=== PATIENT | male | born 1935 | race Caucasian/White ===

== ENCOUNTER 2021-08-09 11:58 | Observation (INO) ==
[2021-08-09] MEDS ORDERED: 0.9 % Sodium Chloride 1,000 ML IV ONE (12:11)
[2021-08-09 12:41] LABS: Basophils % 0.6 %; Eosinophils % 0.6 %; Hematocrit 30.1 % (37.5-50.1); Hemoglobin 9.2 g/dL (12.9-16.9); Immature Granulocytes % 9.2 % (0-4); Lymphocytes % 16.6 %; Mean Corpuscular HGB Conc 30.6 g/dL (31.6-35.5); Mean Corpuscular Hemoglobin 28.4 pg (28.0-33.3); Mean Corpuscular Volume 92.9 fL (83.0-100.0); Mean Platelet Volume 10.3 fL (9.4-12.4); Monocytes % 60.1 %; Neutrophils # 0.4 K/mcL (1.6-8.9); Red Blood Count 3.24 M/mcL (4.19-5.50); Red Cell Distribution Width 16.1 % (11.5-14.5); Segmented Neutrophils % 12.9 %; White Blood Count 3.3 K/mcL (4.3-11.1)
[2021-08-09 12:42] LABS: Lymphocytes # 0.6 K/mcL (0.6-4.6); Platelet Count 85 K/mcL (140-400)
[2021-08-09 12:48] LABS: INR 1.3
[2021-08-09 12:59] LABS: Magnesium 1.5 mg/dL (1.6-2.6); Phosphorous 3.4 mg/dL (2.7-4.5); Troponin I < 0.03 ng/mL (< 0.04)
[2021-08-09 13:00] LABS: Platelet Estimate Decreased (Normal); Tear Drop Cells 1+ (Not Present)
[2021-08-09 13:02] LABS: Anisocytosis 1+ (Not Present)
[2021-08-09 13:18] LABS: Albumin/Globulin Ratio 0.9 (1.1-2.2); Bilirubin,Total 0.4 mg/dL (0.3-1.0); Calcium 8.2 mg/dL (8.6-10.3); Globulin 3.3 g/dL (2.4-3.5); Potassium 4.4 mEq/L (3.5-5.1); Total Protein 6.3 g/dL (6.4-8.9)
[2021-08-09 14:22] LABS: Bilirubin,Urine Negative (Negative); Blood,Urine Large (Negative); Clarity,Urine Cloudy (Clear); Color,Urine Amber (Yellow); Glucose,Urine (UA) Normal (Normal); Ketones,Urine Trace mg/dL (Negative); Leukocyte Esterase,Urine Negative (Negative); Nitrite,Urine Negative (Negative); Protein,Urine Trace mg/dL (Neg-Trace); Urobilinogen,Urine Normal (Normal)
[2021-08-09 14:32] LABS: RBC,Urine TNTC per hpf (0-3)
[2021-08-09] MEDS ORDERED: Ondansetron 4 MG/2 ML VIAL IVP PRN (15:29)
[2021-08-09] MEDS ORDERED: Naloxone 0.4 MG/ML INJ IVP PRN (15:29)
[2021-08-09] MEDS ORDERED: Ondansetron ODT 4 MG TAB.RAPDIS SL PRN (15:29)
[2021-08-09] MEDS ORDERED: MOM Conc 10 ML UD.LIQ PO PRN (15:29)
[2021-08-09] MEDS ORDERED: Mag Hydrox/Al Hydrox/Simeth 30 ML UDC PO PRN (15:29)
[2021-08-09] MEDS ORDERED: cefTRIAXone 1,000 MG in Water for inj. (sterile) 10 ML IVP SCH (15:36)
[2021-08-09] MEDS ORDERED: Primidone 50 MG TABLET PO SCH (16:00)
[2021-08-09] MEDS: 0.9 % Sodium Chloride 1,000 ML IVC SCH (16:19)
[2021-08-09] MEDS ORDERED: Primidone 50 MG TABLET PO ONE (21:00)
[2021-08-09] MEDS: Melatonin 3 MG TABLET PO PRN (21:34)
[2021-08-09] MEDS: *HR* HYDROcodone/Acet 5/325 mg TABLET PO PRN (21:34)
[2021-08-09] MEDS: Magnesium Oxide 400 MG TABLET PO SCH (21:35)
[2021-08-09] MEDS: valACYclovir 500 MG TABLET PO SCH (21:35)
[2021-08-10] MEDS: 0.9 % Sodium Chloride 1,000 ML IVC SCH (04:21)
[2021-08-10 06:11] LABS: Hematocrit 27.2 % (37.5-50.1); Hemoglobin 8.2 g/dL (12.9-16.9); Mean Corpuscular HGB Conc 30.1 g/dL (31.6-35.5); Mean Corpuscular Hemoglobin 28.2 pg (28.0-33.3); Mean Corpuscular Volume 93.5 fL (83.0-100.0); Mean Platelet Volume 10.2 fL (9.4-12.4); Red Blood Count 2.91 M/mcL (4.19-5.50); Red Cell Distribution Width 16.3 % (11.5-14.5); White Blood Count 3.2 K/mcL (4.3-11.1)
[2021-08-10 06:12] LABS: Platelet Count 73 K/mcL (140-400)
[2021-08-10 06:41] LABS: Albumin 2.7 g/dL (3.5-5.7); Albumin/Globulin Ratio 0.9 (1.1-2.2); Bilirubin,Total 0.3 mg/dL (0.3-1.0); Calcium 7.8 mg/dL (8.6-10.3); Globulin 2.9 g/dL (2.4-3.5); Magnesium 2.1 mg/dL (1.6-2.6); Phosphorous 3.5 mg/dL (2.7-4.5); Potassium 4.5 mEq/L (3.5-5.1); Total Protein 5.6 g/dL (6.4-8.9)
[2021-08-10] MEDS: Magnesium Oxide 400 MG TABLET PO SCH ×2 (08:31→21:17)
[2021-08-10] MEDS: valACYclovir 500 MG TABLET PO SCH ×2 (08:31→21:18)
[2021-08-10 09:28] LABS: Monocytes # 1.1 K/mcL (0.0-1.3); Neutrophils # 1.1 K/mcL (1.6-8.9); Platelet Estimate Marked Decrease (Normal)
[2021-08-10] MEDS: Acetaminophen 325 MG TABLET PO PRN ×2 (12:53→18:53)
[2021-08-10] MEDS: Melatonin 3 MG TABLET PO PRN (21:17)
[2021-08-11] MEDS: valACYclovir 500 MG TABLET PO SCH ×2 (08:39→20:59)
[2021-08-11] MEDS: Acetaminophen 325 MG TABLET PO PRN (08:39)
[2021-08-11] MEDS: Magnesium Oxide 400 MG TABLET PO SCH ×2 (08:39→20:59)
[2021-08-11 10:10] LABS: Basophils % 0.7 %; Eosinophils # 0.1 K/mcL (0.0-0.6); Eosinophils % 2.2 %; Hematocrit 28.1 % (37.5-50.1); Hemoglobin 8.5 g/dL (12.9-16.9); Immature Granulocytes % 0.7 % (0-4); Lymphocytes # 0.4 K/mcL (0.6-4.6); Lymphocytes % 13.3 %; Mean Corpuscular HGB Conc 30.2 g/dL (31.6-35.5); Mean Corpuscular Hemoglobin 28.2 pg (28.0-33.3); Mean Corpuscular Volume 93.4 fL (83.0-100.0); Mean Platelet Volume 10.5 fL (9.4-12.4); Monocytes # 1.7 K/mcL (0.0-1.3); Monocytes % 61.3 %; Neutrophils # 0.6 K/mcL (1.6-8.9); Red Blood Count 3.01 M/mcL (4.19-5.50); Red Cell Distribution Width 16.3 % (11.5-14.5); Segmented Neutrophils % 21.8 %; White Blood Count 2.7 K/mcL (4.3-11.1)
[2021-08-11 10:32] LABS: Platelet Count 57 K/mcL (140-400)
[2021-08-11 10:38] LABS: Platelet Estimate Decreased (Normal)
[2021-08-11 11:31] LABS: Calcium 7.9 mg/dL (8.6-10.3); Magnesium 1.8 mg/dL (1.6-2.6); Potassium 4.3 mEq/L (3.5-5.1)
[2021-08-11] MEDS: *HR* HYDROcodone/Acet 5/325 mg TABLET PO PRN ×2 (12:49→21:02)
[2021-08-11] MEDS: Melatonin 3 MG TABLET PO PRN (21:02)
[2021-08-12 05:04] LABS: Basophils % 0.4 %; Eosinophils # 0.1 K/mcL (0.0-0.6); Eosinophils % 1.8 %; Hematocrit 26.7 % (37.5-50.1); Hemoglobin 8.2 g/dL (12.9-16.9); Immature Granulocytes % 0.4 % (0-4); Lymphocytes # 0.5 K/mcL (0.6-4.6); Lymphocytes % 16.1 %; Mean Corpuscular HGB Conc 30.7 g/dL (31.6-35.5); Mean Corpuscular Hemoglobin 28.6 pg (28.0-33.3); Mean Platelet Volume 9.2 fL (9.4-12.4); Monocytes # 1.8 K/mcL (0.0-1.3); Monocytes % 62.8 %; Neutrophils # 0.5 K/mcL (1.6-8.9); Red Blood Count 2.87 M/mcL (4.19-5.50); Red Cell Distribution Width 16.3 % (11.5-14.5); Segmented Neutrophils % 18.5 %; White Blood Count 2.9 K/mcL (4.3-11.1)
[2021-08-12 05:09] LABS: Platelet Count 56 K/mcL (140-400)
[2021-08-12 05:10] LABS: Platelet Estimate Decreased (Normal)
[2021-08-12 05:19] LABS: BUN/Creatinine Ratio 21 (6-26); Blood Urea Nitrogen 28 mg/dL (8-23); Carbon Dioxide 26 mEq/L (23-29); Chloride 108 mEq/L (98-107); Glucose 113 mg/dL (70-105); Osmolality,Calculated 292 (280-300); Sodium 138 mEq/L (136-145); eGFR For African Americans > 60 (> 60); eGFR For Non-African Americans 52 (> 60)
[2021-08-12] MEDS: valACYclovir 500 MG TABLET PO SCH (08:56)
[2021-08-12] MEDS: Magnesium Oxide 400 MG TABLET PO SCH (08:56)
[2021-08-12 11:20] VITALS: BP 136/66; PULSE 66; RESP 16; TEMP 97.3; O2SAT 94
[2021-08-12] MEDS: *HR* HYDROcodone/Acet 5/325 mg TABLET PO PRN (14:51)
== END 2021-08-12 16:31 | disposition other institution (70) ==
LOC: INPGRE 11:58 → EMEROOGRE 11:58 → INPGRE 15:30
PROVIDERS: ADMIT Family Medicine; ATTEND Family Medicine

== ENCOUNTER 2021-08-12 16:24 | Inpatient (IN) ==
[2021-08-12] MEDS ORDERED: Acetaminophen 325 MG TABLET PO PRN (16:58)
[2021-08-12] MEDS ORDERED: Melatonin 3 MG TABLET PO PRN (17:00)
[2021-08-12] MEDS ORDERED: Mag Hydrox/Al Hydrox/Simeth 30 ML UDC PO PRN (17:00)
[2021-08-12] MEDS ORDERED: MOM Conc 10 ML UD.LIQ PO PRN (17:01)
[2021-08-12] MEDS ORDERED: Naloxone 0.4 MG/ML INJ IVP PRN (17:01)
[2021-08-12] MEDS ORDERED: Ondansetron 4 MG/2 ML VIAL IVP PRN (17:01)
[2021-08-12] MEDS ORDERED: Ondansetron ODT 4 MG TAB.RAPDIS SL PRN (17:02)
[2021-08-12] MEDS: Primidone 50 MG TABLET PO SCH (20:25)
[2021-08-12] MEDS: valACYclovir 500 MG TABLET PO SCH (20:26)
[2021-08-12] MEDS: Magnesium Oxide 400 MG TABLET PO SCH (20:26)
[2021-08-13] MEDS: *HR* HYDROcodone/Acet 5/325 mg TABLET PO PRN ×3 (02:11→14:41)
[2021-08-13] MEDS: Magnesium Oxide 400 MG TABLET PO SCH ×2 (08:27→20:21)
[2021-08-13] MEDS: valACYclovir 500 MG TABLET PO SCH ×2 (08:27→20:21)
[2021-08-13] MEDS: Primidone 50 MG TABLET PO SCH (20:20)
[2021-08-14 04:43] LABS: Hematocrit 26.5 % (37.5-50.1); Hemoglobin 8.1 g/dL (12.9-16.9); Mean Corpuscular HGB Conc 30.6 g/dL (31.6-35.5); Mean Corpuscular Hemoglobin 28.3 pg (28.0-33.3); Mean Corpuscular Volume 92.7 fL (83.0-100.0); Mean Platelet Volume 9.8 fL (9.4-12.4); Red Blood Count 2.86 M/mcL (4.19-5.50); Red Cell Distribution Width 16.9 % (11.5-14.5); White Blood Count 3.4 K/mcL (4.3-11.1)
[2021-08-14 04:47] LABS: Platelet Count 82 K/mcL (140-400)
[2021-08-14 04:58] LABS: Calcium 8.3 mg/dL (8.6-10.3); Potassium 5.4 mEq/L (3.5-5.1)
[2021-08-14] MEDS: *HR* HYDROcodone/Acet 5/325 mg TABLET PO PRN (08:16)
[2021-08-14] MEDS: Magnesium Oxide 400 MG TABLET PO SCH ×2 (08:16→22:13)
[2021-08-14] MEDS: valACYclovir 500 MG TABLET PO SCH ×2 (08:17→22:11)
[2021-08-14] MEDS ORDERED: 0.9 % Sodium Chloride 1,000 ML IVC SCH (11:15)
[2021-08-14] MEDS: Primidone 50 MG TABLET PO SCH (22:12)
[2021-08-14 23:13] LABS: Bilirubin,Urine Negative (Negative); Blood,Urine Large (Negative); Clarity,Urine Clear (Clear); Color,Urine Yellow (Yellow); Glucose,Urine (UA) Normal (Normal); Ketones,Urine Negative (Negative); Leukocyte Esterase,Urine Negative (Negative); Nitrite,Urine Negative (Negative); PH,Urine 6.5 pH Units (5.0-8.0); Protein,Urine 30 mg/dL (Neg-Trace); Urobilinogen,Urine Normal (Normal)
[2021-08-14 23:19] LABS: Bacteria,Urine Few per hpf (None-Few); RBC,Urine 50-100 per hpf (0-3); Squamous Epithelial Cell,Urine Few per hpf (None-Few)
[2021-08-15 06:02] LABS: Hematocrit 26.6 % (37.5-50.1); Hemoglobin 8.2 g/dL (12.9-16.9); Mean Corpuscular HGB Conc 30.8 g/dL (31.6-35.5); Mean Corpuscular Hemoglobin 28.5 pg (28.0-33.3); Mean Corpuscular Volume 92.4 fL (83.0-100.0); Mean Platelet Volume 9.9 fL (9.4-12.4); Red Blood Count 2.88 M/mcL (4.19-5.50); White Blood Count 3.2 K/mcL (4.3-11.1)
[2021-08-15 06:27] LABS: Calcium 7.9 mg/dL (8.6-10.3); Magnesium 1.9 mg/dL (1.6-2.6); Potassium 4.8 mEq/L (3.5-5.1)
[2021-08-15 06:31] LABS: Platelet Count 99 K/mcL (140-400)
[2021-08-15] MEDS: valACYclovir 500 MG TABLET PO SCH ×2 (08:36→21:16)
[2021-08-15] MEDS: Magnesium Oxide 400 MG TABLET PO SCH ×2 (08:36→21:15)
[2021-08-15] MEDS: *HR* HYDROcodone/Acet 5/325 mg TABLET PO PRN (13:26)
[2021-08-15] MEDS: Primidone 50 MG TABLET PO SCH (21:16)
[2021-08-16] MEDS: *HR* HYDROcodone/Acet 5/325 mg TABLET PO PRN ×2 (01:15→09:03)
[2021-08-16 07:21] VITALS: BP 171/73; PULSE 76; RESP 18; TEMP 97.6; O2SAT 94
[2021-08-16] MEDS: Magnesium Oxide 400 MG TABLET PO SCH (09:03)
[2021-08-16] MEDS: valACYclovir 500 MG TABLET PO SCH (09:03)
== END 2021-08-16 11:40 | disposition home health service (06) | DRG 552 ==
LOC: INPGRE 16:34
PROVIDERS: ADMIT Family Medicine; ATTEND Family Medicine

== ENCOUNTER 2021-08-21 09:10 | Inpatient (IN) ==
[2021-08-21 10:39] LABS: Hemoglobin 9.8 g/dL (12.9-16.9); Immature Granulocytes % 0.5 % (0-4); Lymphocytes # 0.3 K/mcL (0.6-4.6); Mean Corpuscular HGB Conc 30.6 g/dL (31.6-35.5); Mean Corpuscular Hemoglobin 29.3 pg (28.0-33.3); Mean Corpuscular Volume 95.5 fL (83.0-100.0); Mean Platelet Volume 11.5 fL (9.4-12.4); Monocytes # 1.4 K/mcL (0.0-1.3); Monocytes % 64.8 %; Neutrophils # 0.5 K/mcL (1.6-8.9); Red Blood Count 3.35 M/mcL (4.19-5.50); Red Cell Distribution Width 17.8 % (11.5-14.5); Segmented Neutrophils % 22.7 %; White Blood Count 2.2 K/mcL (4.3-11.1)
[2021-08-21 11:07] LABS: Platelet Count 44 K/mcL (140-400)
[2021-08-21 11:20] LABS: Calcium 8.6 mg/dL (8.6-10.3); Potassium 5.4 mEq/L (3.5-5.1)
[2021-08-21] MEDS ORDERED: *HR* HYDROcodone/Acet 5/325 mg TABLET PO ONE (11:35)
[2021-08-21] MEDS ORDERED: Mag Hydrox/Al Hydrox/Simeth 30 ML UDC PO PRN (16:03)
[2021-08-21] MEDS ORDERED: MOM Conc 10 ML UD.LIQ PO PRN (16:03)
[2021-08-21] MEDS ORDERED: Acetaminophen 325 MG TABLET PO PRN (16:03)
[2021-08-21] MEDS ORDERED: Ondansetron 4 MG/2 ML VIAL IVP PRN (16:03)
[2021-08-21] MEDS ORDERED: Ondansetron ODT 4 MG TAB.RAPDIS SL PRN (16:03)
[2021-08-21] MEDS ORDERED: Melatonin 3 MG TABLET PO PRN (16:03)
[2021-08-21] MEDS ORDERED: Naloxone 0.4 MG/ML INJ IVP PRN (16:03)
[2021-08-21] MEDS ORDERED: Albuterol 2.5 MG/3 ML NEBULIZER IH SCH (16:30)
[2021-08-21] MEDS: Ipratropium 1 PUFF INHALER IH SCH ×2 (16:49→18:59)
[2021-08-21] MEDS: 0.9 % Sodium Chloride 1,000 ML IVC SCH (16:56)
[2021-08-21 19:47] LABS: Bilirubin,Urine Negative (Negative); Blood,Urine Large (Negative); Clarity,Urine Clear (Clear); Color,Urine Yellow (Yellow); Glucose,Urine (UA) Normal (Normal); Ketones,Urine Negative (Negative); Leukocyte Esterase,Urine Negative (Negative); Nitrite,Urine Negative (Negative); PH,Urine 6.5 pH Units (5.0-8.0); Protein,Urine >=300 mg/dL (Neg-Trace); Specific Gravity,Urine 1.025 (1.010-1.025); Urobilinogen,Urine Normal (Normal)
[2021-08-21 20:33] LABS: RBC,Urine 30-50 per hpf (0-3)
[2021-08-21 20:34] LABS: Bacteria,Urine Few per hpf (None-Few); Squamous Epithelial Cell,Urine Few per hpf (None-Few)
[2021-08-22] MEDS: Ipratropium 1 PUFF INHALER IH SCH ×4 (00:09→12:07)
[2021-08-22] MEDS: 0.9 % Sodium Chloride 1,000 ML IVC SCH (03:42)
[2021-08-22] MEDS ORDERED: *HR* Enoxaparin 30 MG/0.3 ML SYRINGE SQ SCH (06:00)
[2021-08-22 06:06] LABS: Hematocrit 33.5 % (37.5-50.1); Mean Corpuscular HGB Conc 29.9 g/dL (31.6-35.5); Mean Corpuscular Volume 97.1 fL (83.0-100.0); Red Blood Count 3.45 M/mcL (4.19-5.50); Red Cell Distribution Width 17.5 % (11.5-14.5); White Blood Count 1.8 K/mcL (4.3-11.1)
[2021-08-22 06:11] LABS: Platelet Count 50 K/mcL (140-400)
[2021-08-22 06:24] LABS: Albumin 3.3 g/dL (3.5-5.7); Bilirubin,Total 0.3 mg/dL (0.3-1.0); Calcium 8.2 mg/dL (8.6-10.3); Globulin 3.4 g/dL (2.4-3.5); Magnesium 1.9 mg/dL (1.6-2.6); Potassium 5.1 mEq/L (3.5-5.1); Total Protein 6.7 g/dL (6.4-8.9)
[2021-08-22 08:09] VITALS: RESP 20
[2021-08-22 14:13] VITALS: BP 118/55; PULSE 83; TEMP 98.3
[2021-08-22] MEDS ORDERED: Morphine Sulfate Oral CONC 10 MG/0.5 ML ORAL.SYG SL PRN (15:29)
[2021-08-22 15:33] VITALS: O2SAT 91
== END 2021-08-22 16:12 | disposition other institution (70) | DRG 177 ==
LOC: EMEROOGRE 09:10 → INPGRE 09:10
PROVIDERS: ADMIT Family Medicine; ATTEND Family Medicine

== ENCOUNTER 2021-08-22 16:08 | Inpatient (IN) ==
[~2021-08-22 16:08] MED LIST: *HR* LORazepam 2 MG/ML VIAL IVP PRN; *HR* LORazepam Oral Conc 2 MG/ML PO PRN; Acetaminophen 325 MG TABLET PO PRN; Acetaminophen 650 MG RECTAL SUPP RC PRN; Albuterol 2.5 MG/3 ML NEBULIZER IH PRN; Atropine 1% Opth Drops 100 DROP/5 ML BOTTLE SL PRN; Bisacodyl 10 MG RECTAL SUPPOSITORY RC PRN; Ipratropium/Albuterol Neb 3 ML IH PRN; Morphine Sulfate 2 MG/ML SYRINGE IVP PRN; Morphine Sulfate Oral CONC 10 MG/0.5 ML ORAL.SYG PO PRN
[2021-08-22] MEDS: Morphine Sulfate Oral CONC 10 MG/0.5 ML ORAL.SYG PO PRN (21:57)
[2021-08-23] MEDS: Morphine Sulfate Oral CONC 10 MG/0.5 ML ORAL.SYG PO PRN ×3 (02:59→09:51)
[2021-08-23] MEDS ORDERED: Dexamethasone Sodium Phos/PF 10 MG/ML VIAL IVP SCH (09:00)
[2021-08-23] MEDS ORDERED: *HR* LORazepam 2 MG/ML VIAL IVP PRN (10:12)
[2021-08-23] MEDS ORDERED: Morphine Sulfate 2 MG/ML SYRINGE IVP PRN (10:26)
[2021-08-23] MEDS: *HR* LORazepam Oral Conc 2 MG/ML PO SCH ×3 (11:16→20:36)
[2021-08-23] MEDS: Morphine Sulfate Oral CONC 10 MG/0.5 ML ORAL.SYG PO SCH ×6 (11:17→23:19)
[2021-08-23 19:11] VITALS: BP 78/47; PULSE 158; RESP 26; TEMP 97.9; O2SAT 75
[2021-08-24] MEDS: Morphine Sulfate Oral CONC 10 MG/0.5 ML ORAL.SYG PO SCH (00:05)
[2021-08-24] MEDS: *HR* LORazepam Oral Conc 2 MG/ML PO SCH (00:05)
== END 2021-08-24 03:05 | disposition expired | DRG 177 ==
LOC: INPGRE 16:16
PROVIDERS: ADMIT Family Medicine; ATTEND Family Medicine